=== PATIENT | female | born 1995 | race Caucasian/White ===

== ENCOUNTER 2022-09-21 13:56 | Inpatient (IN) | payer OTHER ==
[~2022-09-21] VITALS: Ht 154.9 cm; Wt 3.2 kg
[2022-10-01] MEDS ORDERED: PRENATAL TABLE1 EAC1 PO (07:46)
[2022-10-01] MEDS ORDERED: LABETALOL HCL200 MG PO (07:46)
== END 2022-10-04 11:12 | disposition home or self-care (01) | DRG 788 ==
LOC: OB/GYN 13:56 → LDR 10-01 06:54 → OB/GYN 10-01 18:50
PROVIDERS: ADMIT Obstetrics & Gynecology; ATTEND Obstetrics & Gynecology
PROC: 4A1HXCZ Monitoring of Products of Conception, Cardiac Rate, External Approach (ICD-10-PCS; 2022-10-01)
PROC: 10D00Z1 Extraction of Products of Conception, Low, Open Approach (ICD-10-PCS; principal; 2022-10-01 16:00)
DX: O33.8 Maternal care for disproportion of other origin (principal); O13.4 Gestational [pregnancy-induced] hypertension without significant proteinuria, complicating childbirth; O36.8130 Decreased fetal movements, third trimester, not applicable or unspecified; Z3A.39 39 weeks gestation of pregnancy; Z37.0 Single live birth; Z20.822 Contact with and (suspected) exposure to COVID-19